=== PATIENT | male | born 1985 | race Two or more races ===

== ENCOUNTER 2020-03-16 10:55 | Emergency (ER) | payer SELFPAY ==
[~2020-03-16] VITALS: Ht 167.6 cm; Wt 72.0 kg
[2020-03-16 11:22] VITALS: BP 124/76
[2020-03-16] MEDS ORDERED: IBUP-1007 PO (11:38)
[2020-03-16] MEDS ORDERED: ORPH100T PO (11:38)
[2020-03-16] MEDS ORDERED: HYDR-3164 PO (11:38)
--- NOTE | 2020-03-16 11:39 | PHYS DOC ---
General Adult EDM: Chief Complaint: BACK PAIN OR INJURY HPI: HPI: Patient is a 34 year old male who presents with low back non radiating pain that is sharp and worse with movements that started Saturday while he was working. 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 Denies numbness or tinglin g, loss of bowel or bladder, urinary symptoms, abdominal pain, or focal weakness. Patient has tenderness with palpation to right lower paraspinal in the lumbar. Rates his pain at a 10/10. Denies past medical hx. States has not taking any medications for his symptoms. Review of Systems: Review of Systems: Constitutional: Denies fever or chills. [] Eyes: Denies change in visual acuity. [] HENT: Denies nasal congestion or sore throat. [] Respiratory: Denies cough or shortness of breath. [] Cardiovascular: Denies chest pain or edema. [] GI: Denies abdominal pain, nausea, vomiting, bloody stools or diarrhea. [] : Denies dysuria. [] Musculoskeletal: low back pain or joint pain. [] Integument: Denies rash. [] Neurologic: Denies headache, focal weakness or sensory changes. [] Endocrine: Denies polyuria or polydipsia. [] Lymphatic: Denies swollen glands. [] Psychiatric: Denies depression or anxiety. [] Heart Score: Risk Factors: Risk Factors: DM, Current or recent (<one month) smoker, HTN, HLP, family history of CAD, obesity. Risk Scores: Score 0 - 3: 2.5% MACE over next 6 weeks - Discharge Home Score 4 - 6: 20.3% MACE over next 6 weeks - Admit for Clinical Observation Score 7 - 10: 72.7% MACE over next 6 weeks - Early Invasive Strategies Physical Exam: PE: Constitutional: Well developed, well nourished, no acute distress, non-toxic appearance. [] HENT: Normocephalic, atraumatic, bilateral external ears normal, oropharynx moist, no oral exudates, nose normal. [] Eyes: PERRLA, EOMI, conjunctiva normal, no discharge. [] Neck: Normal range of motion, no tenderness, supple, no stridor. [] Cardiovascular:Heart rate regular rhythm, no murmur [] Lungs & Thorax: Bilateral breath sounds clear to auscultation [] Abdomen: Bowel sounds normal, soft, no tenderness, no masses, no pulsatile masses. [] Skin: Warm, dry, no erythema, no rash. [] Back: Right para spinal lower back tenderness, no CVA tenderness. [] Extremities: No tenderness, no cyanosis, no clubbing, ROM intact, no edema. [] Neurologic: Alert and oriented X 3, normal motor function, normal sensory function, no focal deficits noted. [] Psychologic: Affect normal, judgement normal, mood normal. [] EKG: EKG: [] Radiology/Procedures: Radiology/Procedures: [] Impression: [facility] [address] [place] [address] IMAGING REPORT Signed PATIENT: ISMAEL WELLER: [id number] : 1985 LOCATION: ER AGE: 34 SEX: M EXAM STATUS: REG ER ORD. PHYSICIAN: LELA PARDO APRN REASON: pain PROCEDURE: LUMBAR SPINE MIN 4V LUMBAR SPINE MIN 4V History: Pain Comparison: None. Findings: 5 views of the lumbar spine are submitted. There is very mild lumbar levoscoliosis. Lumbar vertebral body stature and AP alignment are maintained. Intervertebral disc spaces are overall maintained. No acute osseous abnormality is identified by radiographs. There is variable retained stool in the visualized colon. Impression: 1. No acute osseous abnormality is identified by radiographs. Electronically signed by: Mecca Willett MD (03/16/2020 12:09 PM) [id number] DICTATED and SIGNED BY: MECCA WILLETT MD DATE: 03/16/20 1209 Course & Med Decision Making: Course & Med Decision Making Pertinent Labs and Imaging studies reviewed. (See chart for details) See HPI. Ambulatory with a steady gait. Skin pink warm and dry. No bruising or deformity seen to his back. No deformities is felt in his spine or his back. No focal bony spinal tenderness with palpation. Moves all extremities normal with normal strength. No focal weakness. Alert and oriented x4. Patient is given ibuprofen in the ED because he drove. I will send the patient home with a muscle relaxer and pain medication. He is also educated on proper lifting techniques. [] Dragon Disclaimer: Karina Disclaimer: This electronic medical record was generated, in whole or in part, using a voice recognition dictation system. Departure Departure Impression: Primary Impression: Low back pain Qualified Codes: M54.5 - Low back pain Disposition: HOME, SELF-CARE Condition: STABLE Referrals: NO PCP (PCP) Patient Instructions: Low Back Strain with Rehab-SportsMed Additional Instructions: Follow up with primary care physician. Also try using lidocaine patches or heating pad for your pain. Scripts Ibuprofen (IBUPROFEN) 600 Mg Tablet 600 MG PO PRN Q6HRS PRN for INFLAMMATION, #20 TAB Prov: LELA PARDO APRN 03/16/20 Hydrocodone/Apap 5-325 (NORCO 5-325 TABLET) 1 Each Tablet 1 TAB PO PRN Q6HRS PRN for PAIN, #10 TAB 0 Refills Prov: LELA PARDO APRN 03/16/20 Orphenadrine Citrate (ORPHENADRINE CITRATE) 100 Mg Tablet.er 1 TAB PO BID, #20 TAB 1 Refill Prov: LELA PARDO APRN 03/16/20 Justicifation of Admission Dx: Justifications for Admission: Justification of Admission Dx: N/A LELA PARDO APRN Mar 16, 2020 11:39
[2020-03-16] MEDS: IBUPROFEN 200 MG TABLET. PO ONE (12:01)
--- NOTE | 2020-03-16 12:12 | RAD ---
LUMBAR SPINE MIN 4V History: Pain Comparison: None. Findings: 5 views of the lumbar spine are submitted. There is very mild lumbar levoscoliosis. Lumbar vertebral body stature and AP alignment are maintained. Intervertebral disc spaces are overall maintained. No acute osseous abnormality is identified by radiographs. There is variable retained stool in the visualized colon. Impression: 1. No acute osseous abnormality is identified by radiographs. Electronically signed by: Pascual España MD (03/16/2020 12:09 PM) [id number]
== END 2020-03-16 12:37 | disposition home or self-care (01) ==
LOC: ER 10:55
DX: M54.5 Low back pain (principal)
CPT/HCPCS: 72110; 99283